=== PATIENT | male | born 1945 | race Caucasian/White ===

== ENCOUNTER 2023-07-06 13:17 | Outpatient (RCR) | payer MEDICARE, BC, SELFPAY ==
[2023-07-06 13:43] LABS: % Eosinophils 4.4 % (0-6); % Immature Granulocytes 0.2 % (0-0.5); % Lymphocytes 26.1 % (20.5-51.1); % Monocytes 11.3 % (1.7-9.3); Absolute Basophils 0.1 10^3/uL (0-0.2); Absolute Eosinophils 0.3 10^3/uL (0-0.7); Absolute Lymphocytes 1.6 10^3/uL (1.2-3.4); Absolute Monocytes 0.7 10^3/uL (0.1-0.6); Absolute Neutrophils 3.5 10^3/uL (1.4-6.5); Hematocrit 37.2 % (39.0-52.0); Hemoglobin 12.9 g/dL (13.0-18.0); Mean Corp Hgb Conc. 34.7 g/dL (33.0-37.0); Mean Corpuscular Hgb 35.3 pg (27.0-31.0); Mean Corpuscular Volume 101.9 fL (80.0-94.0); Mean Platelet Volume 10.3 fL (7.4-10.4); Platelet Count 253 10^3/uL (130-400); Red Blood Cell Count 3.65 10^6/uL (4.70-6.10); Red Cell Dist. Width 12.5 % (11.5-14.5); White Blood Cell Count 6.2 10^3/uL (4.8-10.8)
[2023-07-06 14:53] LABS: Iron 313 ug/dl (49-181)
[2023-07-06 15:02] LABS: Percent Saturation 101 % (20-50); Total Iron Binding Capacity 307 ug/dl (261-462)
== END 2023-07-21 23:59 | disposition home or self-care (01) ==
LOC: OID 13:17
PROVIDERS: ATTENDING PHYSICIAN Internal Medicine Hematology & Oncology; FAMILY PHYSICIAN Family Medicine
DX: E83.110 Hereditary hemochromatosis (principal)
CPT/HCPCS: 36415; 82728; 83540; 83550; 85025

== ENCOUNTER 2023-08-03 13:03 | Outpatient (RCR) | payer MEDICARE, BC, SELFPAY ==
[2023-08-03 13:36] LABS: % Basophils 0.5 % (0-2); % Eosinophils 5.7 % (0-6); % Neutrophils 55.8 % (42.2-75.2); Absolute Eosinophils 0.3 10^3/uL (0-0.7); Absolute Lymphocytes 1.5 10^3/uL (1.2-3.4); Absolute Monocytes 0.8 10^3/uL (0.1-0.6); Absolute Neutrophils 3.4 10^3/uL (1.4-6.5); Hematocrit 37.6 % (39.0-52.0); Mean Corp Hgb Conc. 34.6 g/dL (33.0-37.0); Mean Corpuscular Hgb 35.2 pg (27.0-31.0); Mean Corpuscular Volume 101.9 fL (80.0-94.0); Mean Platelet Volume 10.3 fL (7.4-10.4); Platelet Count 271 10^3/uL (130-400); Red Blood Cell Count 3.69 10^6/uL (4.70-6.10); Red Cell Dist. Width 12.4 % (11.5-14.5)
[2023-08-03 13:46] VITALS: BP 157/66
[2023-08-03 14:22] VITALS: BP 123/62
[2023-08-03 14:24] VITALS: BP 144/77
[2023-08-03 15:02] LABS: Iron 255 ug/dl (49-181)
[2023-08-03 15:11] LABS: Percent Saturation 83 % (20-50); Total Iron Binding Capacity 307 ug/dl (261-462)
[2023-08-03 15:37] LABS: Ferritin 33.9 ng/ml (17.9-464.0)
== END 2023-08-03 15:41 | disposition home or self-care (01) ==
LOC: OID 13:03
PROVIDERS: ATTENDING PHYSICIAN Internal Medicine Hematology & Oncology; FAMILY PHYSICIAN Family Medicine
DX: E83.110 Hereditary hemochromatosis (principal)
CPT/HCPCS: 82728; 83540; 83550; 85025; 99195

== ENCOUNTER 2023-09-15 14:01 | Outpatient (RCR) | payer MEDICARE, BC, SELFPAY ==
[2023-09-15 14:16] LABS: % Basophils 0.7 % (0-2); % Eosinophils 5.2 % (0-6); % Lymphocytes 24.4 % (20.5-51.1); % Monocytes 11.4 % (1.7-9.3); % Neutrophils 58.3 % (42.2-75.2); Absolute Eosinophils 0.3 10^3/uL (0-0.7); Absolute Lymphocytes 1.5 10^3/uL (1.2-3.4); Absolute Monocytes 0.7 10^3/uL (0.1-0.6); Absolute Neutrophils 3.5 10^3/uL (1.4-6.5); Hematocrit 36.6 % (39.0-52.0); Hemoglobin 13.1 g/dL (13.0-18.0); Mean Corp Hgb Conc. 35.8 g/dL (33.0-37.0); Mean Corpuscular Hgb 36.2 pg (27.0-31.0); Mean Corpuscular Volume 101.1 fL (80.0-94.0); Platelet Count 267 10^3/uL (130-400); Red Blood Cell Count 3.62 10^6/uL (4.70-6.10); Red Cell Dist. Width 12.4 % (11.5-14.5); White Blood Cell Count 5.9 10^3/uL (4.8-10.8)
[2023-09-15 14:48] VITALS: BP 144/68
[2023-09-15 15:25] VITALS: BP 135/64
[2023-09-15 15:45] LABS: Iron 290 ug/dl (49-181)
[2023-09-15 15:54] LABS: Percent Saturation 100 % (20-50); Total Iron Binding Capacity 288 ug/dl (261-462)
[2023-09-15 17:03] LABS: Ferritin 40.8 ng/ml (17.9-464.0)
== END 2023-09-16 08:13 | disposition home or self-care (01) ==
LOC: OID 14:01
PROVIDERS: ATTENDING PHYSICIAN Internal Medicine Hematology & Oncology; FAMILY PHYSICIAN Family Medicine
DX: E83.110 Hereditary hemochromatosis (principal)
CPT/HCPCS: 36415; 82728; 83540; 83550; 85025; 99195

== ENCOUNTER 2023-10-26 13:52 | Outpatient (RCR) | payer MEDICARE, BC, SELFPAY ==
[2023-10-26 14:08] LABS: % Basophils 0.3 % (0-2); % Eosinophils 5.9 % (0-6); % Lymphocytes 26.9 % (20.5-51.1); % Monocytes 12.4 % (1.7-9.3); % Neutrophils 54.5 % (42.2-75.2); Absolute Eosinophils 0.3 10^3/uL (0-0.7); Absolute Lymphocytes 1.6 10^3/uL (1.2-3.4); Absolute Monocytes 0.7 10^3/uL (0.1-0.6); Absolute Neutrophils 3.2 10^3/uL (1.4-6.5); Hematocrit 36.4 % (39.0-52.0); Hemoglobin 12.8 g/dL (13.0-18.0); Mean Corp Hgb Conc. 35.2 g/dL (33.0-37.0); Mean Corpuscular Hgb 36.3 pg (27.0-31.0); Mean Corpuscular Volume 103.1 fL (80.0-94.0); Platelet Count 268 10^3/uL (130-400); Red Blood Cell Count 3.53 10^6/uL (4.70-6.10); Red Cell Dist. Width 12.8 % (11.5-14.5); White Blood Cell Count 5.8 10^3/uL (4.8-10.8)
[2023-10-26 14:30] VITALS: BP 147/69
[2023-10-26 14:50] VITALS: BP 135/71
[2023-10-26 15:01] VITALS: BP 143/70
[2023-10-26 15:01] LABS: Iron 289 ug/dl (49-181)
[2023-10-26 15:10] LABS: Percent Saturation 97 % (20-50); Total Iron Binding Capacity 295 ug/dl (261-462)
== END 2023-11-20 23:59 | disposition home or self-care (01) ==
LOC: OID 13:52
PROVIDERS: ATTENDING PHYSICIAN Internal Medicine Hematology & Oncology; FAMILY PHYSICIAN Family Medicine
DX: E83.110 Hereditary hemochromatosis (principal)
CPT/HCPCS: 36415; 82728; 83540; 83550; 85025; 99195

== ENCOUNTER 2023-12-07 13:12 | Outpatient (RCR) | payer MEDICARE, BC, SELFPAY ==
[2023-12-07 13:44] LABS: % Basophils 0.5 % (0-2); % Eosinophils 6.2 % (0-6); % Lymphocytes 25.9 % (20.5-51.1); % Neutrophils 57.4 % (42.2-75.2); Absolute Eosinophils 0.4 10^3/uL (0-0.7); Absolute Lymphocytes 1.6 10^3/uL (1.2-3.4); Absolute Monocytes 0.6 10^3/uL (0.1-0.6); Absolute Neutrophils 3.6 10^3/uL (1.4-6.5); Hematocrit 38.8 % (39.0-52.0); Hemoglobin 13.5 g/dL (13.0-18.0); Mean Corp Hgb Conc. 34.8 g/dL (33.0-37.0); Mean Corpuscular Hgb 36.1 pg (27.0-31.0); Mean Corpuscular Volume 103.7 fL (80.0-94.0); Mean Platelet Volume 10.4 fL (7.4-10.4); Platelet Count 275 10^3/uL (130-400); Red Blood Cell Count 3.74 10^6/uL (4.70-6.10); Red Cell Dist. Width 12.3 % (11.5-14.5); White Blood Cell Count 6.3 10^3/uL (4.8-10.8)
[2023-12-07 13:55] VITALS: BP 154/70
[2023-12-07 14:25] VITALS: BP 135/61
[2023-12-07 14:27] LABS: Iron 284 ug/dl (49-181)
[2023-12-07 14:30] VITALS: BP 122/76
[2023-12-07 14:37] LABS: Percent Saturation 93 % (20-50); Total Iron Binding Capacity 304 ug/dl (261-462)
[2023-12-07 15:13] LABS: Ferritin 35.9 ng/ml (17.9-464.0)
== END 2023-12-08 08:46 | disposition home or self-care (01) ==
LOC: OID 13:12
PROVIDERS: ATTENDING PHYSICIAN Internal Medicine Hematology & Oncology; FAMILY PHYSICIAN Family Medicine
DX: E83.110 Hereditary hemochromatosis (principal)
CPT/HCPCS: 36415; 82728; 83540; 83550; 85025; 99195

== ENCOUNTER 2024-01-25 13:12 | Outpatient (RCR) | payer MEDICARE, BC, SELFPAY ==
[2024-01-25 13:48] LABS: % Basophils 0.6 % (0-2); % Eosinophils 6.5 % (0-6); % Immature Granulocytes 0.2 % (0-0.5); % Lymphocytes 25.2 % (20.5-51.1); % Monocytes 9.6 % (1.7-9.3); % Neutrophils 57.9 % (42.2-75.2); Absolute Eosinophils 0.4 10^3/uL (0-0.7); Absolute Lymphocytes 1.6 10^3/uL (1.2-3.4); Absolute Monocytes 0.6 10^3/uL (0.1-0.6); Absolute Neutrophils 3.7 10^3/uL (1.4-6.5); Hematocrit 36.3 % (39.0-52.0); Hemoglobin 12.8 g/dL (13.0-18.0); Mean Corp Hgb Conc. 35.3 g/dL (33.0-37.0); Mean Corpuscular Hgb 36.3 pg (27.0-31.0); Mean Corpuscular Volume 102.8 fL (80.0-94.0); Mean Platelet Volume 10.1 fL (7.4-10.4); Platelet Count 262 10^3/uL (130-400); Red Blood Cell Count 3.53 10^6/uL (4.70-6.10); Red Cell Dist. Width 12.2 % (11.5-14.5); White Blood Cell Count 6.4 10^3/uL (4.8-10.8)
[2024-01-25 14:23] VITALS: BP 118/62
[2024-01-25 14:43] VITALS: BP 136/68
[2024-01-25 14:46] VITALS: BP 121/70
[2024-01-25 16:13] LABS: Iron 221 ug/dl (49-181)
[2024-01-25 16:22] LABS: Percent Saturation 74 % (20-50); Total Iron Binding Capacity 297 ug/dl (261-462)
[2024-01-25 17:26] LABS: Ferritin 33.9 ng/ml (17.9-464.0)
== END 2024-01-25 15:27 | disposition home or self-care (01) ==
LOC: OID 13:12
PROVIDERS: ATTENDING PHYSICIAN Internal Medicine Hematology & Oncology; FAMILY PHYSICIAN Family Medicine
DX: E83.110 Hereditary hemochromatosis (principal)
CPT/HCPCS: 36415; 82728; 83540; 83550; 85025; 99195

== ENCOUNTER 2024-03-14 13:30 | Outpatient (RCR) | payer MEDICARE, BC, SELFPAY ==
[2024-03-06 14:09] LABS: % Basophils 0.7 % (0-2); % Eosinophils 5.1 % (0-6); % Immature Granulocytes 0.2 % (0-0.5); % Lymphocytes 27.4 % (20.5-51.1); % Monocytes 12.7 % (1.7-9.3); % Neutrophils 53.9 % (42.2-75.2); Absolute Eosinophils 0.3 10^3/uL (0-0.7); Absolute Lymphocytes 1.7 10^3/uL (1.2-3.4); Absolute Monocytes 0.8 10^3/uL (0.1-0.6); Absolute Neutrophils 3.3 10^3/uL (1.4-6.5); Hematocrit 36.1 % (39.0-52.0); Hemoglobin 12.8 g/dL (13.0-18.0); Mean Corp Hgb Conc. 35.5 g/dL (33.0-37.0); Mean Corpuscular Hgb 36.5 pg (27.0-31.0); Mean Corpuscular Volume 102.8 fL (80.0-94.0); Platelet Count 293 10^3/uL (130-400); Red Blood Cell Count 3.51 10^6/uL (4.70-6.10); Red Cell Dist. Width 12.3 % (11.5-14.5); White Blood Cell Count 6.1 10^3/uL (4.8-10.8)
[2024-03-06 14:25] VITALS: BP 139/57
[2024-03-06 15:05] LABS: Iron 206 ug/dl (49-181)
[2024-03-06 15:14] LABS: Percent Saturation 70 % (20-50); Total Iron Binding Capacity 292 ug/dl (261-462)
[2024-03-06 15:40] LABS: Ferritin 46.9 ng/ml (17.9-464.0)
[2024-03-14 13:58] VITALS: BP 150/70
[2024-03-14 14:18] VITALS: BP 124/64
== END 2024-03-15 09:50 | disposition home or self-care (01) ==
LOC: OID 13:30
PROVIDERS: ATTENDING PHYSICIAN Internal Medicine Hematology & Oncology; FAMILY PHYSICIAN Family Medicine
DX: E83.110 Hereditary hemochromatosis (principal)
CPT/HCPCS: 36415; 82728; 83540; 83550; 85025; 99195

== ENCOUNTER 2024-05-02 09:24 | Outpatient (RCR) | payer MEDICARE, BC, SELFPAY ==
[2024-05-02 09:40] LABS: % Basophils 0.9 % (0-2); % Eosinophils 2.6 % (0-6); % Monocytes 10.6 % (1.7-9.3); % Neutrophils 60.9 % (42.2-75.2); Absolute Basophils 0.1 10^3/uL (0-0.2); Absolute Eosinophils 0.2 10^3/uL (0-0.7); Absolute Lymphocytes 1.5 10^3/uL (1.2-3.4); Absolute Monocytes 0.6 10^3/uL (0.1-0.6); Absolute Neutrophils 3.6 10^3/uL (1.4-6.5); Hematocrit 37.6 % (39.0-52.0); Hemoglobin 13.1 g/dL (13.0-18.0); Mean Corp Hgb Conc. 34.8 g/dL (33.0-37.0); Mean Corpuscular Volume 103.3 fL (80.0-94.0); Mean Platelet Volume 10.2 fL (7.4-10.4); Platelet Count 276 10^3/uL (130-400); Red Blood Cell Count 3.64 10^6/uL (4.70-6.10); Red Cell Dist. Width 12.2 % (11.5-14.5); White Blood Cell Count 5.8 10^3/uL (4.8-10.8)
[2024-05-02 10:56] LABS: Iron 283 ug/dl (49-181)
[2024-05-02 11:06] LABS: Percent Saturation 91 % (20-50); Total Iron Binding Capacity 308 ug/dl (261-462)
[2024-05-02 11:33] LABS: Ferritin 45.9 ng/ml (17.9-464.0)
[2024-05-02 13:30] VITALS: BP 146/65
[2024-05-02 13:40] VITALS: BP 143/49
[2024-05-02 13:46] VITALS: BP 144/69
== END 2024-05-22 23:59 | disposition home or self-care (01) ==
LOC: OID 09:24
PROVIDERS: ATTENDING PHYSICIAN Internal Medicine Hematology & Oncology; FAMILY PHYSICIAN Family Medicine
DX: E83.110 Hereditary hemochromatosis (principal)
CPT/HCPCS: 36415; 82728; 83540; 83550; 85025; 99195

== ENCOUNTER 2024-05-30 13:14 | Outpatient (RCR) | payer MEDICARE, BC, SELFPAY ==
[2024-05-30 13:34] LABS: % Basophils 0.6 % (0-2); % Eosinophils 4.9 % (0-6); % Lymphocytes 27.8 % (20.5-51.1); % Monocytes 12.3 % (1.7-9.3); % Neutrophils 54.4 % (42.2-75.2); Absolute Eosinophils 0.3 10^3/uL (0-0.7); Absolute Lymphocytes 1.8 10^3/uL (1.2-3.4); Absolute Monocytes 0.8 10^3/uL (0.1-0.6); Absolute Neutrophils 3.5 10^3/uL (1.4-6.5); Hematocrit 37.8 % (39.0-52.0); Hemoglobin 13.1 g/dL (13.0-18.0); Mean Corp Hgb Conc. 34.7 g/dL (33.0-37.0); Mean Corpuscular Hgb 35.7 pg (27.0-31.0); Platelet Count 284 10^3/uL (130-400); Red Blood Cell Count 3.67 10^6/uL (4.70-6.10); Red Cell Dist. Width 12.1 % (11.5-14.5); White Blood Cell Count 6.5 10^3/uL (4.8-10.8)
[2024-05-30 14:23] VITALS: BP 140/66
[2024-05-30 14:53] VITALS: BP 134/58
[2024-05-30 15:00] VITALS: BP 123/63
[2024-05-30 15:40] LABS: Iron 304 ug/dl (49-181)
[2024-05-30 15:50] LABS: Percent Saturation 101 % (20-50); Total Iron Binding Capacity 299 ug/dl (261-462)
[2024-05-30 16:16] LABS: Ferritin 46.9 ng/ml (17.9-464.0)
[2024-05-30 16:47] LABS: Folate > 20.0 ng/ml (2.76-20); Vitamin B12 606 pg/ml (239-931)
[2024-05-31 20:30] LABS: AFP Male/Tumor Marker 2.34 ng/ml
== END 2024-06-22 14:29 | disposition home or self-care (01) ==
LOC: OID 13:14
PROVIDERS: ATTENDING PHYSICIAN Internal Medicine Hematology & Oncology; FAMILY PHYSICIAN Family Medicine
DX: E83.110 Hereditary hemochromatosis (principal)
CPT/HCPCS: 36415; 82105; 82607; 82728; 82746; 83540; 83550; 85025; 99195

== ENCOUNTER 2024-06-27 13:24 | Outpatient (RCR) | payer MEDICARE, BC, SELFPAY ==
[2024-06-27 13:56] LABS: % Basophils 0.6 % (0-2); % Eosinophils 4.1 % (0-6); % Immature Granulocytes 0.2 % (0-0.5); % Lymphocytes 29.9 % (20.5-51.1); % Monocytes 10.3 % (1.7-9.3); % Neutrophils 54.9 % (42.2-75.2); Absolute Eosinophils 0.3 10^3/uL (0-0.7); Absolute Monocytes 0.7 10^3/uL (0.1-0.6); Absolute Neutrophils 3.6 10^3/uL (1.4-6.5); Hematocrit 36.4 % (39.0-52.0); Hemoglobin 12.7 g/dL (13.0-18.0); Mean Corp Hgb Conc. 34.9 g/dL (33.0-37.0); Mean Corpuscular Hgb 36.1 pg (27.0-31.0); Mean Corpuscular Volume 103.4 fL (80.0-94.0); Mean Platelet Volume 10.3 fL (7.4-10.4); Platelet Count 290 10^3/uL (130-400); Red Blood Cell Count 3.52 10^6/uL (4.70-6.10); Red Cell Dist. Width 12.5 % (11.5-14.5); White Blood Cell Count 6.6 10^3/uL (4.8-10.8)
[2024-06-27 14:16] VITALS: BP 136/61
[2024-06-27 14:41] VITALS: BP 141/65
[2024-06-27 14:47] VITALS: BP 142/65
[2024-06-27 15:00] VITALS: BP 155/83
[2024-06-27 17:00] LABS: Iron 228 ug/dl (49-181)
[2024-06-27 17:08] LABS: Percent Saturation 76 % (20-50); Total Iron Binding Capacity 299 ug/dl (261-462)
[2024-06-27 17:24] LABS: Ferritin 46.3 ng/ml (17.9-464.0)
== END 2024-06-28 09:53 | disposition home or self-care (01) ==
LOC: OID 13:24
PROVIDERS: ATTENDING PHYSICIAN Internal Medicine Hematology & Oncology; FAMILY PHYSICIAN Family Medicine
DX: E83.110 Hereditary hemochromatosis (principal)
CPT/HCPCS: 36415; 82728; 83540; 83550; 85025; 99195

== ENCOUNTER 2024-07-26 13:24 | Outpatient (RCR) | payer MEDICARE, BC, SELFPAY ==
[2024-07-26 13:39] LABS: % Basophils 0.9 % (0-2); % Eosinophils 5.6 % (0-6); % Lymphocytes 30.6 % (20.5-51.1); % Monocytes 14.3 % (1.7-9.3); % Neutrophils 48.6 % (42.2-75.2); Absolute Basophils 0.1 10^3/uL (0-0.2); Absolute Eosinophils 0.3 10^3/uL (0-0.7); Absolute Lymphocytes 1.7 10^3/uL (1.2-3.4); Absolute Monocytes 0.8 10^3/uL (0.1-0.6); Absolute Neutrophils 2.8 10^3/uL (1.4-6.5); Hematocrit 35.2 % (39.0-52.0); Hemoglobin 12.5 g/dL (13.0-18.0); Mean Corp Hgb Conc. 35.5 g/dL (33.0-37.0); Mean Corpuscular Hgb 36.8 pg (27.0-31.0); Mean Corpuscular Volume 103.5 fL (80.0-94.0); Platelet Count 269 10^3/uL (130-400); Red Cell Dist. Width 12.5 % (11.5-14.5); White Blood Cell Count 5.7 10^3/uL (4.8-10.8)
[2024-07-26 13:59] VITALS: BP 141/58
[2024-07-26 14:45] VITALS: BP 130/69
[2024-07-26 14:47] VITALS: BP 128/87
[2024-07-26 14:54] LABS: Iron 218 ug/dl (49-181)
[2024-07-26 15:03] LABS: Percent Saturation 71 % (20-50); Total Iron Binding Capacity 304 ug/dl (261-462)
[2024-07-26 15:28] LABS: Ferritin 40.4 ng/ml (17.9-464.0)
== END 2024-07-27 09:49 | disposition home or self-care (01) ==
LOC: OID 13:24
PROVIDERS: ATTENDING PHYSICIAN Internal Medicine Hematology & Oncology; FAMILY PHYSICIAN Family Medicine
DX: E83.110 Hereditary hemochromatosis (principal)
CPT/HCPCS: 36415; 82728; 83540; 83550; 85025; 99195

== ENCOUNTER 2024-08-28 13:25 | Outpatient (RCR) | payer MEDICARE, BC, SELFPAY ==
[2024-08-28 14:09] LABS: % Basophils 0.7 % (0-2); % Eosinophils 3.6 % (0-6); % Immature Granulocytes 0.1 % (0-0.5); % Lymphocytes 27.7 % (20.5-51.1); % Monocytes 11.5 % (1.7-9.3); % Neutrophils 56.4 % (42.2-75.2); Absolute Basophils 0.1 10^3/uL (0-0.2); Absolute Eosinophils 0.2 10^3/uL (0-0.7); Absolute Lymphocytes 1.9 10^3/uL (1.2-3.4); Absolute Monocytes 0.8 10^3/uL (0.1-0.6); Absolute Neutrophils 3.8 10^3/uL (1.4-6.5); Hematocrit 36.9 % (39.0-52.0); Hemoglobin 12.8 g/dL (13.0-18.0); Mean Corp Hgb Conc. 34.7 g/dL (33.0-37.0); Mean Corpuscular Hgb 35.8 pg (27.0-31.0); Mean Corpuscular Volume 103.1 fL (80.0-94.0); Platelet Count 285 10^3/uL (130-400); Red Blood Cell Count 3.58 10^6/uL (4.70-6.10); Red Cell Dist. Width 12.1 % (11.5-14.5); White Blood Cell Count 6.7 10^3/uL (4.8-10.8)
[2024-08-28 14:22] VITALS: BP 153/66
[2024-08-28 14:52] VITALS: BP 138/64
[2024-08-28 14:53] LABS: Iron 197 ug/dl (49-181)
[2024-08-28 15:00] VITALS: BP 141/64
[2024-08-28 15:02] LABS: Percent Saturation 63 % (20-50); Total Iron Binding Capacity 308 ug/dl (261-462)
[2024-08-28 15:03] VITALS: BP 136/68
[2024-08-28 16:01] LABS: Ferritin 30.7 ng/ml (17.9-464.0)
== END 2024-09-19 23:59 | disposition home or self-care (01) ==
LOC: OID 13:25
PROVIDERS: ATTENDING PHYSICIAN Internal Medicine Hematology & Oncology; FAMILY PHYSICIAN Family Medicine
DX: E83.110 Hereditary hemochromatosis (principal)
CPT/HCPCS: 36415; 82728; 83540; 83550; 85025; 99195

== ENCOUNTER 2024-10-04 10:12 | Outpatient (RCR) | payer MEDICARE, BC, SELFPAY ==
[2024-10-04 10:36] LABS: % Basophils 0.9 % (0-2); % Eosinophils 6.9 % (0-6); % Lymphocytes 25.9 % (20.5-51.1); % Monocytes 12.5 % (1.7-9.3); % Neutrophils 53.8 % (42.2-75.2); Absolute Basophils 0.1 10^3/uL (0-0.2); Absolute Eosinophils 0.4 10^3/uL (0-0.7); Absolute Lymphocytes 1.5 10^3/uL (1.2-3.4); Absolute Monocytes 0.7 10^3/uL (0.1-0.6); Absolute Neutrophils 3.1 10^3/uL (1.4-6.5); Hematocrit 35.7 % (39.0-52.0); Hemoglobin 12.3 g/dL (13.0-18.0); Mean Corp Hgb Conc. 34.5 g/dL (33.0-37.0); Mean Corpuscular Hgb 35.7 pg (27.0-31.0); Mean Corpuscular Volume 103.5 fL (80.0-94.0); Mean Platelet Volume 10.2 fL (7.4-10.4); Platelet Count 270 10^3/uL (130-400); Red Blood Cell Count 3.45 10^6/uL (4.70-6.10); Red Cell Dist. Width 12.3 % (11.5-14.5); White Blood Cell Count 5.8 10^3/uL (4.8-10.8)
[2024-10-04 10:53] VITALS: BP 149/67
[2024-10-04 11:26] VITALS: BP 137/65
[2024-10-04 11:32] VITALS: BP 140/81
[2024-10-04 11:45] LABS: Iron 248 ug/dl (49-181)
[2024-10-04 11:55] LABS: Percent Saturation 80 % (20-50); Total Iron Binding Capacity 308 ug/dl (261-462)
[2024-10-04 12:20] LABS: Ferritin 31.5 ng/ml (17.9-464.0)
--- NOTE | 2024-10-04 12:40 | PTCARENOTE ---
Patients HR upon arrival is 46-50, he is assymtomatic, history AFIB. States his metoprolol was recently increased from 50mg to 100mg daily. BP is stable. Patient tolerated phlebotomy and standing HR post treatment was 51. Advised patient to contact
prescribing doctor and report low HR. Patient verbalized understanding.
== END 2024-10-05 09:40 | disposition home or self-care (01) ==
LOC: OID 10:12
PROVIDERS: ATTENDING PHYSICIAN Internal Medicine Hematology & Oncology; FAMILY PHYSICIAN Family Medicine
DX: E83.110 Hereditary hemochromatosis (principal)
CPT/HCPCS: 36415; 82728; 83540; 83550; 85025; 99195

== ENCOUNTER 2024-11-02 09:04 | Outpatient (RCR) | payer MEDICARE, BC, SELFPAY ==
[2024-11-02 09:50] LABS: % Basophils 1.2 % (0-2); % Eosinophils 5.9 % (0-6); % Immature Granulocytes 0.5 % (0-0.5); % Lymphocytes 24.6 % (20.5-51.1); % Monocytes 11.5 % (1.7-9.3); % Neutrophils 56.3 % (42.2-75.2); Absolute Basophils 0.1 10^3/uL (0-0.2); Absolute Eosinophils 0.4 10^3/uL (0-0.7); Absolute Lymphocytes 1.5 10^3/uL (1.2-3.4); Absolute Monocytes 0.7 10^3/uL (0.1-0.6); Absolute Neutrophils 3.3 10^3/uL (1.4-6.5); Hematocrit 36.3 % (39.0-52.0); Hemoglobin 12.9 g/dL (13.0-18.0); Mean Corp Hgb Conc. 35.5 g/dL (33.0-37.0); Mean Corpuscular Hgb 36.2 pg (27.0-31.0); Mean Platelet Volume 10.6 fL (7.4-10.4); Nucleated Red Blood Cells % 0 % (-); Platelet Count 262 10^3/uL (130-400); Red Blood Cell Count 3.56 10^6/uL (4.70-6.10); Red Cell Dist. Width 12.5 % (11.5-14.5); White Blood Cell Count 5.9 10^3/uL (4.8-10.8)
[2024-11-02 10:03] LABS: Iron 276 ug/dl (49-181)
[2024-11-02 10:26] VITALS: BP 163/70
[2024-11-02 10:45] LABS: Percent Saturation 88 % (20-50); Total Iron Binding Capacity 311 ug/dl (261-462)
[2024-11-02 11:04] VITALS: BP 167/76
[2024-11-02 11:07] VITALS: BP 116/74
[2024-11-02 20:18] LABS: Ferritin 41.3 ng/ml (17.9-464.0)
== END 2024-11-19 23:59 | disposition home or self-care (01) ==
LOC: OID 09:04
PROVIDERS: ATTENDING PHYSICIAN Internal Medicine Hematology & Oncology; FAMILY PHYSICIAN Family Medicine
DX: E83.110 Hereditary hemochromatosis (principal)
CPT/HCPCS: 82728; 83540; 83550; 85025; 99195

== ENCOUNTER 2024-12-06 10:22 | Outpatient (RCR) | payer MEDICARE, BC, SELFPAY ==
[2024-12-06 10:39] LABS: Hematocrit 35.2 % (39.0-52.0); Hemoglobin 12.4 g/dL (13.0-18.0); Mean Corp Hgb Conc. 35.2 g/dL (33.0-37.0); Mean Corpuscular Volume 101.1 fL (80.0-94.0); Platelet Count 206 10^3/uL (130-400); Red Cell Dist. Width 12.7 % (11.5-14.5)
[2024-12-06 11:00] VITALS: BP 147/80
[2024-12-06 11:40] VITALS: BP 132/56
[2024-12-06 11:54] LABS: Iron 256 ug/dl (49-181)
[2024-12-06 11:58] VITALS: BP 142/61
[2024-12-06 12:00] VITALS: BP 129/66
[2024-12-06 12:03] LABS: Total Iron Binding Capacity 309 ug/dl (261-462)
[2024-12-06 14:07] LABS: Ferritin 47.5 ng/ml (17.9-464.0)
== END 2024-12-07 10:58 | disposition home or self-care (01) ==
LOC: OID 10:22
PROVIDERS: ATTENDING PHYSICIAN Internal Medicine Hematology & Oncology; FAMILY PHYSICIAN Family Medicine
DX: E83.110 Hereditary hemochromatosis (principal)
CPT/HCPCS: 36415; 82728; 83540; 83550; 85025; 99195

== ENCOUNTER 2024-12-31 13:13 | Outpatient (RCR) | payer MEDICARE, BC, SELFPAY ==
[2024-12-31 13:50] VITALS: BP 147/57
[2024-12-31 13:55] LABS: Hematocrit 35.3 % (39.0-52.0); Hemoglobin 12.4 g/dL (13.0-18.0); Mean Corp Hgb Conc. 35.1 g/dL (33.0-37.0); Mean Corpuscular Volume 103.2 fL (80.0-94.0); Platelet Count 269 10^3/uL (130-400); Red Cell Dist. Width 12.7 % (11.5-14.5)
[2024-12-31 14:15] VITALS: BP 150/65
[2024-12-31 14:25] VITALS: BP 163/57
[2024-12-31 14:30] VITALS: BP 154/71
[2024-12-31 14:54] LABS: Iron 235 ug/dl (49-181)
[2024-12-31 15:04] LABS: Total Iron Binding Capacity 313 ug/dl (261-462)
[2024-12-31 15:31] LABS: Ferritin 40.0 ng/ml (17.9-464.0)
== END 2025-01-20 23:59 | disposition home or self-care (01) ==
LOC: OID 13:13
PROVIDERS: ATTENDING PHYSICIAN Internal Medicine Hematology & Oncology; FAMILY PHYSICIAN Family Medicine
DX: E83.110 Hereditary hemochromatosis (principal)
CPT/HCPCS: 36415; 82728; 83540; 83550; 85025; 99195

== ENCOUNTER 2025-01-28 13:07 | Outpatient (RCR) | payer MEDICARE, BC, SELFPAY ==
[2025-01-28 13:32] LABS: Hematocrit 36.3 % (39.0-52.0); Hemoglobin 12.7 g/dL (13.0-18.0); Mean Corp Hgb Conc. 35.0 g/dL (33.0-37.0); Mean Corpuscular Volume 104.3 fL (80.0-94.0); Platelet Count 277 10^3/uL (130-400); Red Cell Dist. Width 12.7 % (11.5-14.5)
[2025-01-28 13:51] VITALS: BP 160/77
[2025-01-28 14:24] LABS: Iron 282 ug/dl (49-181)
[2025-01-28 14:27] VITALS: BP 155/59
[2025-01-28 14:30] VITALS: BP 133/78
[2025-01-28 14:33] LABS: Total Iron Binding Capacity 301 ug/dl (261-462)
[2025-01-28 14:59] LABS: Ferritin 37.7 ng/ml (17.9-464.0)
== END 2025-01-29 11:44 | disposition home or self-care (01) ==
LOC: OID 13:07
PROVIDERS: ATTENDING PHYSICIAN Internal Medicine Hematology & Oncology; FAMILY PHYSICIAN Family Medicine
DX: E83.110 Hereditary hemochromatosis (principal)
CPT/HCPCS: 36415; 82728; 83540; 83550; 85025; 99195

== ENCOUNTER 2025-02-26 13:13 | Outpatient (RCR) | payer MEDICARE, BC, SELFPAY ==
[2025-02-26 13:41] VITALS: BP 148/69
[2025-02-26 13:41] LABS: Hematocrit 36.2 % (39.0-52.0); Hemoglobin 12.5 g/dL (13.0-18.0); Mean Corp Hgb Conc. 34.5 g/dL (33.0-37.0); Mean Corpuscular Volume 105.8 fL (80.0-94.0); Platelet Count 290 10^3/uL (130-400); Red Cell Dist. Width 12.5 % (11.5-14.5)
[2025-02-26 13:55] VITALS: BP 143/65
[2025-02-26 14:05] VITALS: BP 134/75
[2025-02-26 14:18] LABS: Iron 283 ug/dl (49-181)
[2025-02-26 14:28] LABS: Total Iron Binding Capacity 304 ug/dl (261-462)
[2025-02-26 15:06] LABS: Ferritin 54.6 ng/ml (17.9-464.0)
== END 2025-03-21 13:53 | disposition home or self-care (01) ==
LOC: OID 13:13
PROVIDERS: ATTENDING PHYSICIAN Internal Medicine Hematology & Oncology; FAMILY PHYSICIAN Family Medicine
DX: E83.110 Hereditary hemochromatosis (principal)
CPT/HCPCS: 36415; 82728; 83540; 83550; 85025; 99195

== ENCOUNTER 2025-03-26 13:16 | Outpatient (RCR) | payer MEDICARE, BC, SELFPAY ==
[2025-03-26 13:51] LABS: Hematocrit 35.9 % (39.0-52.0); Hemoglobin 12.3 g/dL (13.0-18.0); Mean Corp Hgb Conc. 34.3 g/dL (33.0-37.0); Mean Corpuscular Volume 106.5 fL (80.0-94.0); Platelet Count 283 10^3/uL (130-400); Red Cell Dist. Width 12.5 % (11.5-14.5)
[2025-03-26 14:11] VITALS: BP 132/55
[2025-03-26 14:22] LABS: Iron 265 ug/dl (49-181)
[2025-03-26 14:31] LABS: Total Iron Binding Capacity 312 ug/dl (261-462)
[2025-03-26 14:37] VITALS: BP 124/54
[2025-03-26 14:50] VITALS: BP 136/64
[2025-03-26 14:57] LABS: Ferritin 40.8 ng/ml (17.9-464.0)
== END 2025-04-21 23:59 | disposition home or self-care (01) ==
LOC: OID 13:16
PROVIDERS: ATTENDING PHYSICIAN Internal Medicine Hematology & Oncology; FAMILY PHYSICIAN Family Medicine
DX: E83.110 Hereditary hemochromatosis (principal)
CPT/HCPCS: 36415; 82728; 83540; 83550; 85025; 99195

== ENCOUNTER 2025-04-25 13:22 | Outpatient (RCR) | payer MEDICARE, BC, SELFPAY ==
[2025-04-25 13:40] LABS: Hematocrit 35.3 % (39.0-52.0); Hemoglobin 12.2 g/dL (13.0-18.0); Mean Corp Hgb Conc. 34.6 g/dL (33.0-37.0); Mean Corpuscular Volume 105.7 fL (80.0-94.0); Platelet Count 280 10^3/uL (130-400); Red Cell Dist. Width 12.3 % (11.5-14.5)
[2025-04-25 13:50] VITALS: BP 145/72
[2025-04-25 14:08] VITALS: BP 129/50
[2025-04-25 14:14] VITALS: BP 142/64
[2025-04-25 14:20] VITALS: BP 143/71
[2025-04-25 14:44] LABS: Iron 280 ug/dl (49-181)
[2025-04-25 14:53] LABS: Total Iron Binding Capacity 302 ug/dl (261-462)
[2025-04-25 15:25] LABS: Ferritin 42.5 ng/ml (17.9-464.0)
== END 2025-05-22 23:59 | disposition home or self-care (01) ==
LOC: OID 13:22
PROVIDERS: ATTENDING PHYSICIAN Internal Medicine Hematology & Oncology; FAMILY PHYSICIAN Family Medicine
DX: E83.110 Hereditary hemochromatosis (principal)
CPT/HCPCS: 36415; 82728; 83540; 83550; 85025; 99195